=== PATIENT | female | born 1950 | race Caucasian/White ===

== ENCOUNTER 2018-11-06 09:19 | Day surgery (SDC) | payer MEDICARE, BC ==
[~2018-11-06 09:19] MED LIST: Acetaminophen 325 MG Tab PO SCH; EPINEPHrine 1 MG/ML SDV ONE; Lactated Ringers 1,000 ML IV SCH; Lidocaine 1%/Sod Bicarbonate in NS 8.4% 1 ML Syringe IDERM PRN; Pregabalin 25 MG Cap PO SCH; Ropivacaine 0.5% 5 MG/ML 30 ML SDV ONE; Sodium Chloride 0.9% 10 ML Syringe FLUSH PRN; oxyCODONE ER 10 MG TAB.ER PO SCH
[2018-11-06] MEDS ORDERED: Midazolam 1 MG/ML 2 ML SDV ONE (09:56)
[2018-11-06] MEDS ORDERED: fentaNYL 100 MCG/2 ML SDV ONE (09:56)
[2018-11-06] MEDS ORDERED: Propofol 200 MG/20 ML SDV ONE ×2 (09:56)
[2018-11-06] MEDS ORDERED: ceFAZolin 1 GM Vial ONE ×2 (10:07→12:03)
[2018-11-06] MEDS ORDERED: Bupivacaine 0.75% 30 ML SDV ONE (10:07)
[2018-11-06] MEDS ORDERED: Ondansetron 4 MG/2 ML SDV ONE (10:07)
[2018-11-06] MEDS ORDERED: Lidocaine 1% 6 ML ONE (10:07)
[2018-11-06] MEDS ORDERED: Vancomycin 1 GM SDV ONE (12:03)
[2018-11-06] MEDS ORDERED: Bupivacaine 0.25% 30 ML SDV ONE (12:03)
[2018-11-06] MEDS ORDERED: Iodine/Sodium Iodide 2% Tincture 30 ML Bottle ONE (12:03)
--- NOTE | 2018-11-06 12:41 | PCM.PREANE ---
Preanesthetic Assessment - Anesthesia/Transfusion/Family Hx Anesthesia History: Prior Anesthesia Without Reaction Family History of Anesthesia Reaction: No Transfusion History: No Prior Transfusion(s) Intubation History: Unknown - Review of Systems General: No Symptoms Pulmonary: No Symptoms Cardiovascular: No Symptoms Gastrointestinal: No Symptoms Neurological: Numbness (bilateral carpal tunnel) Other: Reports: Thyroid Problems (hypothyroid) - Physical Assessment NPO Status Date: 11/05/18 NPO Status Time: 20:30 Pulse: 66 O2 Sat by Pulse Oximetry: 97 Respiratory Rate: 16 Blood Pressure: 131/84 Temperature: 36.3 C Vital Signs: Last Vital Signs Temp 36.3 C 11/06/18 10:00 Pulse 66 11/06/18 10:00 Resp 16 11/06/18 10:00 BP 131/84 11/06/18 10:00 Pulse Ox 97 11/06/18 10:00 Height: 1.63 m Weight: 72.575 kg ASA Class: 2 Mental Status: Alert & Oriented x3 Airway Class: Mallampati = 1 Dentition: Reports: Normal Dentition Thyro-Mental Finger Breadths: 3 Mouth Opening Finger Breadths: 3 ROM/Head Extension: Full Lungs: Clear to Auscultation, Normal Respiratory Effort Cardiovascular: Regular Rate, Regular Rhythm - Lab Values: Laboratory Last Values MRSA (PCR) Negative 10/17/18 12:10 - Imaging/EKG Impressions: EKG SR rate 57 on chart - Allergies Allergies/Adverse Reactions: Allergies Allergy/AdvReac Type Severity Reaction Status Date / Time No Known Allergies Allergy Verified 11/05/18 19:03 - Blood Blood Available: No Product(s) Available: None - Anesthesia Plan Pre-Op Medication Ordered: None - Acknowledgements Anesthesia Type Planned: Spinal, Regional Block (adductor cannal block for post- op pain control) Pt an Appropriate Candidate for the Planned Anesthesia: Yes Alternatives and Risks of Anesthesia Discussed w Pt/Guardian: Yes Pt/Guardian Understands and Agrees with Anesthesia Plan: Yes PreAnesthesia Questionnaire HEENT History: Reports: Impaired Vision, Sinusitis, Other (See Below) Other HEENT History: Nasal Congestion; Patient wears eye glasses. Cardiovascular History: Reports: High Cholesterol, Other (See Below) Other Cardiovascular History: fluid retention Respiratory History: Reports: Other (See Below) Other Respiratory History: Patient reports having had coughs and ACUTE URI's. States she has not had an upper respiratory infection for "quite awhile". Gastrointestinal History: Reports: Chronic Constipation, GERD, Other (See Below) Other Gastrointestinal History: Abdominal Pain, Nausea Genitourinary History: Reports: Other (See Below) Other Genitourinary History: enlarged ovary Other OB/BYN History: Enlarged Right Ovary, Hysterectomy (1991) with Oophorectomy Musculoskeletal History: Reports: Arthritis, Other (See Below) Other Musculoskeletal History: Ganglion Cyst, Popliteal Cyst, Left Knee Arthritis, Foot Pain Neurological History: Reports: Headaches, Chronic Psychiatric History: Reports: Depression, Other (See Below) Other Psychiatric History: Fatigue Endocrine/Metabolic History: Reports: Hypothyroidism, Vitamin D Deficiency Other Endocrine/Metabolic History: Vitamin B12 Deficiency Hematologic History: Reports: B12 Deficiency Immunologic History: Reports: None Oncologic (Cancer) History: Reports: None Dermatologic History: Reports: Other (See Below) Other Dermatologic History: Skin Lesion, Skin Neoplasm, Rash, Solar Lentigo, Cheng to bilateral UE's (1988) - Past Surgical History HEENT Surgical History: Reports: Tonsillectomy Cardiovascular Surgical History: Reports: None Respiratory Surgical History: Reports: None GI Surgical History: Reports: Appendectomy, Cholecystectomy, Colon Female Surgical History: Reports: Hysterectomy, Oophorectomy Male Surgical History: Reports: None Endocrine Surgical History: Reports: None Neurological Surgical History: Reports: None Musculoskeletal Surgical History: Reports: Knee Replacement, Other (See Below) Other Musculoskeletal Surgeries/Procedures:: Bunion Correction to bilateral feet. States she has a pin in each big toe from this surgery, right total knee Oncologic Surgical History: Reports: None Dermatological Surgical History: Reports: Skin Graft, Other (See Below) - SUBSTANCE USE Smoking Status *Q: Never Smoker Tobacco Use Within Last Twelve Months: No Second Hand Smoke Exposure: No Days Per Week of Alcohol Use: 0 Number of Drinks Per Day: 0 Total Drinks Per Week: 0 Recreational Drug Use History: No - HOME MEDS Home Medications: Home Meds Cholecalciferol (Vitamin D3) [Vitamin D3] 5,000 unit PO DAILY 04/07/18 [History] Fluticasone Propionate [Flonase] 1 - 2 spray NASBOTH DAILY 04/07/18 [History] Levothyroxine [Synthroid] 50 mcg PO DAILY 04/07/18 [History] Magnesium 250 mg PO TID 04/07/18 [History] Multivitamin [One Daily] 1 tab PO DAILY 04/07/18 [History] atorvaSTATin [Lipitor] 20 mg PO BEDTIME 04/07/18 [History] Vitamin E 100 unit PO DAILY 11/05/18 [History] - CURRENT (IN HOUSE) MEDS Current Meds: Current Medications Acetaminophen (Tylenol) 975 mg PO ONETIME [facility] Stop: 11/06/18 18:00 Last Admin: 11/06/18 10:39 Dose: 975 mg Aspirin (Ecotrin) 325 mg PO BID [facility] Bisacodyl (Dulcolax) 5 mg PO DAILY PRN PRN Reason: Constipation Morphine Sulfate 8 mg/Epinephrine HCl 0.3 mg/Cefuroxime Sodium 750 mg/Ketorolac Tromethamine 30 mg/Sodium Chloride 27.9 ml 0 mg .XX ONETIME ONE Stop: 11/06/18 13:46 Cyclobenzaprine HCl (Flexeril) 10 mg PO TID PRN PRN Reason: Spasms Docusate Sodium (Colace) 100 mg PO BID [facility] Famotidine (Pepcid) 20 mg PO Q12H [facility] Lactated Ringer's (Ringers, Lactated) 1,000 mls @ 125 mls/hr IV ASDIRECTED [facility] Stop: 11/06/18 23:00 Last Admin: 11/06/18 10:43 Dose: 125 mls/hr Cefazolin Sodium/Dextrose 2 gm (/ Premix) 50 mls @ 100 mls/hr IV Q8H [facility] Stop: 11/07/18 12:29 Ketorolac Tromethamine (Toradol) 15 mg IVPUSH Q6H PRN PRN Reason: Pain Lidocaine/Sodium Bicarbonate (Buffered Lidocaine 1% In Ns 8.4%) 0.25 ml IDERM ONETIME PRN PRN Reason: Prior to IV Start Stop: 11/06/18 18:00 Last Admin: 11/06/18 10:43 Dose: 0.25 ml Magnesium Hydroxide (Milk Of Magnesia) 30 ml PO BID PRN PRN Reason: Constipation Morphine Sulfate (Morphine) 2 mg IVPUSH Q2H PRN PRN Reason: Breakthrough Pain Naloxone HCl (Narcan) 0.1 mg IVPUSH Q5M PRN PRN Reason: Oversedation Ondansetron HCl (Zofran) 4 mg IVPUSH Q6H PRN PRN Reason: Nausea/Vomiting Oxycodone HCl (Oxycontin) 10 mg PO ONETIME [facility] Stop: 11/06/18 18:00 Last Admin: 11/06/18 10:40 Dose: 10 mg Oxycodone/Acetaminophen (Percocet 325-5 Mg) 1 - 2 tab PO Q4H PRN PRN Reason: Pain Pregabalin (Lyrica) 50 mg PO ONETIME [facility] Stop: 11/06/18 18:00 Last Admin: 11/06/18 10:39 Dose: 50 mg Rivaroxaban (Xarelto) 10 mg PO DAILY [facility] Senna (Senna) 8.6 mg PO BID PRN PRN Reason: Constipation Sodium Chloride (Saline Flush) 10 ml FLUSH ASDIRECTED PRN PRN Reason: Keep Vein Open Stop: 11/06/18 18:00 Discontinued Medications Bupivacaine HCl (Sensorcaine-Mpf 0.75%) Confirm Administered Dose 30 ml .ROUTE .STK-MED ONE Stop: 11/06/18 10:08 Bupivacaine HCl (Marcaine 0.25%) Confirm Administered Dose 30 ml .ROUTE .STK- MED ONE Stop: 11/06/18 12:04 Cefazolin Sodium (Ancef) Confirm Administered Dose 2 gm .ROUTE .STK-MED ONE Stop: 11/06/18 10:08 Cefazolin Sodium (Ancef) Confirm Administered Dose 2 gm .ROUTE .STK-MED ONE Stop: 11/06/18 12:04 Epinephrine HCl (Adrenalin) Confirm Administered Dose 1 mg .ROUTE .STK-MED ONE Stop: 11/06/18 05:49 Fentanyl (Sublimaze) Confirm Administered Dose 100 mcg .ROUTE .STK-MED ONE Stop: 11/06/18 09:57 Lidocaine HCl (Xylocaine-Mpf 1%) Confirm Administered Dose 6 mls @ as directed .ROUTE .STK-MED ONE Stop: 11/06/18 10:08 Iodine (Iodine 2% Mild Tincture) Confirm Administered Dose 30 ml .ROUTE .STK- MED ONE Stop: 11/06/18 12:04 Midazolam HCl (Versed 1 Mg/Ml) Confirm Administered Dose 2 mg .ROUTE .STK-MED ONE Stop: 11/06/18 09:57 Ondansetron HCl (Zofran) Confirm Administered Dose 4 mg .ROUTE .STK-MED ONE Stop: 11/06/18 10:08 Propofol (Diprivan 20 Ml) Confirm Administered Dose 400 mg .ROUTE .STK-MED ONE Stop: 11/06/18 09:57 Propofol (Diprivan 20 Ml) Confirm Administered Dose 200 mg .ROUTE .STK-MED ONE Stop: 11/06/18 09:57 Ropivacaine (Naropin 0.5%) Confirm Administered Dose [address] .[facility]-MED ONE Stop: 11/06/18 05:49 Tranexamic Acid (Cyklokapron) Confirm Administered Dose 1,000 mg .ROUTE .STK- MED ONE Stop: 11/06/18 12:04 Vancomycin HCl (Vancomycin) Confirm Administered Dose 1 gm .ROUTE .ST-MED ONE Stop: 11/06/18 12:04
[2018-11-06] MEDS ORDERED: ePHEDrine/Normal Saline 25 MG/5 ML Syringe ONE (13:45)
[2018-11-06] MEDS: Morphine 8 MG, EPINEPHrine 0.3 MG, Cefuroxime 750 MG, Ketorolac 30 MG, Sodium Chloride ... ONE ×10 (14:13→16:29)
[2018-11-06] MEDS ORDERED: Ketorolac 15 MG/ML SDV IVPUSH PRN (15:00)
[2018-11-06] MEDS ORDERED: Bisacodyl 5 MG Tab PO PRN (15:00)
[2018-11-06] MEDS ORDERED: Magnesium Hydroxide 400 MG/5 ML Susp 30 ML Cup PO PRN (15:00)
[2018-11-06] MEDS ORDERED: Morphine 2 MG/ML Syringe IVPUSH PRN (15:00)
[2018-11-06] MEDS ORDERED: Naloxone 0.4 MG/ML SDV IVPUSH PRN (15:00)
[2018-11-06] MEDS ORDERED: Sennosides 8.6 MG Tab PO PRN (15:00)
[2018-11-06] MEDS ORDERED: fentaNYL 100 MCG/2 ML SDV IVPUSH PRN (15:01)
--- NOTE | 2018-11-06 15:02 | PCM.POSTAN ---
POST ANESTHESIA ASSESSMENT - MENTAL STATUS Mental Status: Alert, Oriented - VITAL SIGNS Pulse Rate: 81 SaO2: 96 Resp Rate: 8 Blood Pressure: 80/54 Temperature: 37.2 C - RESPIRATORY Respiratory Status: Respiratory Rate WNL, Airway Patent, O2 Saturation Stable, Supplemental Oxygen - CARDIOVASCULAR CV Status: Pulse Rate WNL, Blood Pressure Stable - GASTROINTESTINAL GI Status: No Symptoms - PAIN Pain Score: 0 - POST OP HYDRATION Hydration Status: Adequate & Stable - OBSERVATIONS Free Text/Narrative:: no anesthesia complications noted
--- NOTE | 2018-11-06 15:06 | PCM.SN ---
- Free Text/Narrative Note: Left selective femoral nerve block at the adductor canal for post-procedure pain control Time Out: 1446 Start: 1446 End: 1454 Chart reviewed. Consent signed. Questions answered. Appropriate monitors applied. Time out performed. Left mid-shaft femur evaluated with ultrasound. Scanning medially femur, I was able to identify the femoral artery in the adductor canal. The saphenous nerve was lateral to the artery. The skin was prepped lateral to the ultrasound probe with chlorahexadine. The 21ga 4 insulated block needle was inserted under direct ultrasound guidance into the adductor canal. 25 mL of 0.5% ropivacaine with 1:200,000 epinephrine was injected cirmcumferentially about the nerve with intermittent negative aspiration every 5mL. Patient tolerated the procedure well. See pictures on progress note and vital signs on nurses notes. Block completed postoperatively. Francisco Javier Glass CRNA
--- NOTE | 2018-11-06 15:52 | CR ---
Left knee: 2 views of the left knee were obtained. Comparison: No prior left knee exam. Knee prosthesis is seen. Components are aligned. Underlying bony structures are intact. Soft tissue air is noted from the surgical procedure. Calcification is noted off the medial epicondyle which is felt to be incidental. Impression: 1. Satisfactory radiographic appearance of recently placed left knee prosthesis. Diagnostic code #2
[2018-11-06] MEDS: Acetaminophen/oxyCODONE 325-5 MG Tab PO PRN (16:39)
[2018-11-06] MEDS: Cyclobenzaprine 10 MG Tab PO PRN (17:38)
[2018-11-06] MEDS: Ondansetron 4 MG/2 ML SDV IVPUSH PRN ×2 (18:15→22:35)
[2018-11-06] MEDS ORDERED: Sodium Chloride 0.9% 500 ML IV ONE (18:23)
[2018-11-06] MEDS ORDERED: Simvastatin 20 MG Tab PO SCH (21:00)
[2018-11-06] MEDS ORDERED: Scopolamine 1.5 MG Transdermal Patch TOP ONE (21:23)
[2018-11-06] MEDS: ceFAZolin 2 GM in Premix Bag 1 BAG IV SCH (21:29)
[2018-11-06] MEDS: Docusate Sodium 100 MG Cap PO SCH (22:03)
[2018-11-06] MEDS: Famotidine 20 MG Tab PO SCH (22:03)
[2018-11-07] MEDS: Acetaminophen/oxyCODONE 325-5 MG Tab PO PRN ×4 (00:07→13:09)
[2018-11-07] MEDS: ceFAZolin 2 GM in Premix Bag 1 BAG IV SCH ×2 (04:23→11:35)
[2018-11-07] MEDS: Cyclobenzaprine 10 MG Tab PO PRN (04:24)
[2018-11-07] MEDS ORDERED: Levothyroxine 50 MCG Tab PO SCH (06:00)
--- NOTE | 2018-11-07 08:14 | PCM.SURGPN ---
- General Info Date of Service: 11/07/18 POD#: 1 Functional Status: Reports: Pain Controlled, Tolerating Diet, Ambulating, Urinating, Incentive Spirometry, Other (The pt states she is doing well.) - Patient Data Vitals - Most Recent: Last Vital Signs Temp 98.6 F 11/07/18 04:36 Pulse 57 L 11/07/18 04:36 Resp 16 11/07/18 04:36 BP 102/59 L 11/07/18 04:36 Pulse Ox 96 11/07/18 04:36 Weight - Most Recent: 160 lb I&O - Last 24 Hours: Intake & Output 11/06/18 11/07/18 11/07/18 22:59 06:59 14:59 Intake Total 200 1300 Output Total 2200 Balance 200 -900 Lab Results Last 24 Hrs: Laboratory Results - last 24 hr 11/07/18 11/07/18 Range/Units 05:25 05:25 WBC 5.94 (3.98-10.04) K/mm3 RBC 3.54 L (3.98-5.22) M/mm3 Hgb 11.1 L (11.2-15.7) gm/L Hct 34.8 (34.1-44.9) % MCV 98.3 H (79.4-94.8) fl MCH 31.4 (25.6-32.2) pg MCHC 31.9 L (32.2-35.5) g/dl RDW Std Deviation 43.6 (36.4-46.3) fL Plt Count 246 (182-369) K/mm3 MPV 9.3 L (9.4-12.3) fl Sodium 140 (136-145) mEq/L Potassium 4.0 (3.5-5.1) mEq/L Chloride 106 (98-107) mEq/L Carbon Dioxide 27 (21-32) mEq/L Anion Gap 11.0 (5-15) BUN 13 (7-18) mg/dL Creatinine 1.0 (0.55-1.02) mg/dL Est Cr Clr Drug Dosing 47.14 mL/min Estimated GFR (MDRD) 55 (>60) mL/min BUN/Creatinine Ratio 13.0 L (14-18) Glucose 105 (80-115) mg/dL Calcium 8.3 L (8.5-10.1) mg/dL Total Bilirubin 0.3 (0.2-1.0) mg/dL AST 53 H (15-37) U/L ALT 51 (14-59) U/L Alkaline Phosphatase 66 (46-116) U/L Total Protein 5.7 L (6.4-8.2) g/dl Albumin 2.6 L (3.4-5.0) g/dl Globulin 3.1 gm/dL Albumin/Globulin Ratio 0.8 L (1-2) Med Orders - Current: Current Medications Bisacodyl (Dulcolax) 5 mg PO DAILY PRN PRN Reason: Constipation Cholecalciferol (Vitamin D3) 5,000 unit PO DAILY [facility] Cyclobenzaprine HCl (Flexeril) 10 mg PO TID PRN PRN Reason: Spasms Last Admin: 11/07/18 04:24 Dose: 10 mg Docusate Sodium (Colace) 100 mg PO BID [facility] Last Admin: 11/06/18 22:03 Dose: 100 mg Famotidine (Pepcid) 20 mg PO Q12H [facility] Last Admin: 11/06/18 22:03 Dose: 20 mg Cefazolin Sodium/Dextrose 2 gm (/ Premix) 50 mls @ 100 mls/hr IV Q8H [facility] Stop: 11/07/18 12:29 Last Admin: 11/07/18 04:23 Dose: 100 mls/hr Ketorolac Tromethamine (Toradol) 15 mg IVPUSH Q6H PRN PRN Reason: Pain Levothyroxine Sodium (Synthroid) 50 mcg PO DAILY@0600 [facility] Last Admin: 11/07/18 06:39 Dose: 50 mcg Magnesium Hydroxide (Milk Of Magnesia) 30 ml PO BID PRN PRN Reason: Constipation Magnesium Oxide (Magnesium Oxide) 400 mg PO DAILY [facility] Miscellaneous Information (Remove Patch) 1 ea TRDERM ONETIME ONE Stop: 11/09/18 21:31 Morphine Sulfate (Morphine) 2 mg IVPUSH Q2H PRN PRN Reason: Breakthrough Pain Multivitamins (Thera) 1 each PO DAILY [facility] Naloxone HCl (Narcan) 0.1 mg IVPUSH Q5M PRN PRN Reason: Oversedation Ondansetron HCl (Zofran) 4 mg IVPUSH Q6H PRN PRN Reason: Nausea/Vomiting Last Admin: 11/06/18 22:35 Dose: 4 mg Oxycodone/Acetaminophen (Percocet 325-5 Mg) 1 - 2 tab PO Q4H PRN PRN Reason: Pain Last Admin: 11/07/18 04:23 Dose: 2 tab Fluticasone (Propionate Ptom) 0 each NASBOTH DAILY [facility] Rivaroxaban (Xarelto) 10 mg PO DAILY [facility] Senna (Senna) 8.6 mg PO BID PRN PRN Reason: Constipation Simvastatin (Zocor) 20 mg PO BEDTIME [facility] Last Admin: 11/06/18 22:03 Dose: 20 mg Discontinued Medications Acetaminophen (Tylenol) 975 mg PO ONETIME [facility] Stop: 11/06/18 18:00 Last Admin: 11/06/18 10:39 Dose: 975 mg Aspirin (Ecotrin) 325 mg PO BID [facility] Bupivacaine HCl (Sensorcaine-Mpf 0.75%) Confirm Administered Dose 30 ml .ROUTE .STK-MED ONE Stop: 11/06/18 10:08 Bupivacaine HCl (Marcaine 0.25%) Confirm Administered Dose 30 ml .ROUTE .STK- MED ONE Stop: 11/06/18 12:04 Last Admin: 11/06/18 14:13 Dose: 30 ml Cefazolin Sodium (Ancef) Confirm Administered Dose 2 gm .ROUTE .STK-MED ONE Stop: 11/06/18 10:08 Last Admin: 11/06/18 14:08 Dose: 2 gm Cefazolin Sodium (Ancef) Confirm Administered Dose 2 gm .ROUTE .STK-MED ONE Stop: 11/06/18 12:04 Morphine Sulfate 8 mg/Epinephrine HCl 0.3 mg/Cefuroxime Sodium 750 mg/Ketorolac Tromethamine 30 mg/Sodium Chloride 27.9 ml 0 mg .XX ONETIME ONE Stop: 11/06/18 13:46 Last Admin: 11/06/18 16:29 Dose: Not Given Ephedrine Sulfate (Ephedrine In Ns) Confirm Administered Dose 25 mg .ROUTE .STK- MED ONE Stop: 11/06/18 13:46 Epinephrine HCl (Adrenalin) Confirm Administered Dose 1 mg .ROUTE .STK-MED ONE Stop: 11/06/18 05:49 Fentanyl (Sublimaze) Confirm Administered Dose 100 mcg .ROUTE .STK-MED ONE Stop: 11/06/18 09:57 Fentanyl (Sublimaze) 50 mcg IVPUSH Q5M PRN PRN Reason: Pain Stop: 11/06/18 19:00 Lactated Ringer's (Ringers, Lactated) 1,000 mls @ 125 mls/hr IV ASDIRECTED [facility] Stop: 11/06/18 23:00 Last Admin: 11/06/18 10:43 Dose: 125 mls/hr Lidocaine HCl (Xylocaine-Mpf 1%) Confirm Administered Dose 6 mls @ as directed .ROUTE .STK-MED ONE Stop: 11/06/18 10:08 Sodium Chloride (Normal Saline) 500 mls @ 999 mls/hr IV ONETIME ONE Stop: 11/06/18 18:53 Last Admin: 11/06/18 18:52 Dose: 999 mls/hr Iodine (Iodine 2% Mild Tincture) Confirm Administered Dose 30 ml .ROUTE .STK- MED ONE Stop: 11/06/18 12:04 Last Admin: 11/06/18 14:05 Dose: 18 ml Lidocaine/Sodium Bicarbonate (Buffered Lidocaine 1% In Ns 8.4%) 0.25 ml IDERM ONETIME PRN PRN Reason: Prior to IV Start Stop: 11/06/18 18:00 Last Admin: 11/06/18 10:43 Dose: 0.25 ml Midazolam HCl (Versed 1 Mg/Ml) Confirm Administered Dose 2 mg .ROUTE .STK-MED ONE Stop: 11/06/18 09:57 Ondansetron HCl (Zofran) Confirm Administered Dose 4 mg .ROUTE .STK-MED ONE Stop: 11/06/18 10:08 Oxycodone HCl (Oxycontin) 10 mg PO ONETIME [facility] Stop: 11/06/18 18:00 Last Admin: 11/06/18 10:40 Dose: 10 mg Pregabalin (Lyrica) 50 mg PO ONETIME [facility] Stop: 11/06/18 18:00 Last Admin: 11/06/18 10:39 Dose: 50 mg Propofol (Diprivan 20 Ml) Confirm Administered Dose 400 mg .ROUTE .STK-MED ONE Stop: 11/06/18 09:57 Propofol (Diprivan 20 Ml) Confirm Administered Dose 200 mg .ROUTE .STK-MED ONE Stop: 11/06/18 09:57 Ropivacaine (Naropin 0.5%) Confirm Administered Dose 30 ml .ROUTE .STK-MED ONE Stop: 11/06/18 05:49 Scopolamine (Transderm-Scop) 1.5 mg TOP ONETIME ONE Stop: 11/06/18 21:24 Last Admin: 11/06/18 21:29 Dose: 1.5 mg Sodium Chloride (Saline Flush) 10 ml FLUSH ASDIRECTED PRN PRN Reason: Keep Vein Open Stop: 11/06/18 18:00 Tranexamic Acid (Cyklokapron) Confirm Administered Dose 1,000 mg .ROUTE .STK- MED ONE Stop: 11/06/18 12:04 Last Admin: 11/06/18 14:19 Dose: 1,000 mg Vancomycin HCl (Vancomycin) Confirm Administered Dose 1 gm .ROUTE .STK-MED ONE Stop: 11/06/18 12:04 Last Admin: 11/06/18 14:15 Dose: 1 gm - Exam Wound/Incisions: Dressing Dry and Intact General: Alert, Cooperative, No Acute Distress Lungs: Normal Respiratory Effort Extremities: Other (NVS intact for BLE. Adrianna's negative.) - Problem List Review Problem List Initiated/Reviewed/Updated: Yes - My Orders Last 24 Hours: Active Orders 24 hr Category Date Time Status Patient Status [ADT] Routine ADT 11/06/18 08:03 Active Antiembolic Devices [RC] 09,21 Care 11/06/18 08:04 Active Notify Provider [RC] ASDIRECTED Care 11/06/18 15:01 Active Pulse Oximetry [RC] ASDIRECTED Care 11/06/18 15:01 Active RT Incentive Spirometry [RC] Q1HWA Care 11/06/18 08:01 Active Ready for Discharge [RC] PER UNIT ROUTINE Care 11/07/18 08:11 Ordered Vital Signs [RC] Q4HR Care 11/06/18 08:03 Active Consult to Physician [CONS] Routine Cons 11/06/18 08:03 Active OT Evaluation and Treatment [CONS] Routine Cons 11/06/18 08:01 Active PT Evaluation and Treatment [CONS] Routine Cons 11/06/18 08:01 Active Regular Diet [DIET] Diet 11/06/18 Lunch Active Acetaminophen/oxyCODONE [Percocet 325-5 MG] Med 11/06/18 15:00 Active 1 - 2 tab PO Q4H PRN Bisacodyl [Dulcolax] Med 11/06/18 15:00 Active 5 mg PO DAILY PRN Cholecalciferol (Vitamin D3) [Vitamin D3] Med 11/07/18 09:00 Active 5,000 unit PO DAILY Cyclobenzaprine [Flexeril] Med 11/06/18 15:00 Active 10 mg PO TID PRN Docusate Sodium [Colace] Med 11/06/18 21:00 Active 100 mg PO BID Famotidine [Pepcid] Med 11/06/18 21:00 Active 20 mg PO Q12H Ketorolac [Toradol] Med 11/06/18 15:00 Active 15 mg IVPUSH Q6H PRN Levothyroxine [Synthroid] Med 11/07/18 06:00 Active 50 mcg PO DAILY@0600 Magnesium Hydroxide [Milk of Magnesia] Med 11/06/18 15:00 Active 30 ml PO BID PRN Magnesium Oxide Med 11/07/18 09:00 Active 400 mg PO DAILY Morphine Med 11/06/18 15:00 Active 2 mg IVPUSH Q2H PRN Multivitamins,Therapeutic [Thera] Med 11/07/18 09:00 Active 1 each PO DAILY Naloxone [Narcan] Med 11/06/18 15:00 Active 0.1 mg IVPUSH Q5M PRN Ondansetron [Zofran] Med 11/06/18 15:00 Active 4 mg IVPUSH Q6H PRN Patient's Own Medication [Ptom] Med 11/07/18 09:00 Active 0 each NASBOTH DAILY Remove Patch Med 11/09/18 21:30 Once 1 ea TRDERM ONETIME ONE Rivaroxaban [Xarelto] Med 11/07/18 09:00 Active 10 mg PO DAILY Sennosides [Senna] Med 11/06/18 15:00 Active 8.6 mg PO BID PRN Simvastatin [Zocor] Med 11/06/18 21:00 Active 20 mg PO BEDTIME ceFAZolin [Ancef] 2 gm Med 11/06/18 20:00 Active Premix Bag 1 bag IV Q8H Antiembolic Hose [OM.PC] Per Unit Routine Oth 11/06/18 08:05 Ordered Ice Therapy [OM.PC] Per Unit Routine Oth 11/06/18 08:05 Ordered Sequential Compression Device [OM.PC] Per Unit Routine Oth 11/06/18 08:01 Ordered Resuscitation Status Routine Resus Stat 11/06/18 08:03 Ordered Medication Orders Bisacodyl (Dulcolax) 5 mg PO DAILY PRN PRN Reason: Constipation Cholecalciferol (Vitamin D3) 5,000 unit PO DAILY [facility] Cyclobenzaprine HCl (Flexeril) 10 mg PO TID PRN PRN Reason: Spasms Last Admin: 11/07/18 04:24 Dose: 10 mg Admin: 11/06/18 17:38 Dose: 10 mg Docusate Sodium (Colace) 100 mg PO BID [facility] Last Admin: 11/06/18 22:03 Dose: 100 mg Famotidine (Pepcid) 20 mg PO Q12H [facility] Last Admin: 11/06/18 22:03 Dose: 20 mg Cefazolin Sodium/Dextrose 2 gm (/ Premix) 50 mls @ 100 mls/hr IV Q8H [facility] Stop: 11/07/18 12:29 Last Admin: 11/07/18 04:23 Dose: 100 mls/hr Infusion: 11/06/18 21:59 Dose: 100 mls/hr Admin: 11/06/18 21:29 Dose: 100 mls/hr Ketorolac Tromethamine (Toradol) 15 mg IVPUSH Q6H PRN PRN Reason: Pain Levothyroxine Sodium (Synthroid) 50 mcg PO DAILY@0600 [facility] Last Admin: 11/07/18 06:39 Dose: 50 mcg Magnesium Hydroxide (Milk Of Magnesia) 30 ml PO BID PRN PRN Reason: Constipation Magnesium Oxide (Magnesium Oxide) 400 mg PO DAILY [facility] Miscellaneous Information (Remove Patch) 1 ea TRDERM ONETIME ONE Stop: 11/09/18 21:31 Morphine Sulfate (Morphine) 2 mg IVPUSH Q2H PRN PRN Reason: Breakthrough Pain Multivitamins (Thera) 1 each PO DAILY [facility] Naloxone HCl (Narcan) 0.1 mg IVPUSH Q5M PRN PRN Reason: Oversedation Ondansetron HCl (Zofran) 4 mg IVPUSH Q6H PRN PRN Reason: Nausea/Vomiting Last Admin: 11/06/18 22:35 Dose: 4 mg Admin: 11/06/18 18:15 Dose: 4 mg Oxycodone/Acetaminophen (Percocet 325-5 Mg) 1 - 2 tab PO Q4H PRN PRN Reason: Pain Last Admin: 11/07/18 04:23 Dose: 2 tab Admin: 11/07/18 00:07 Dose: 2 tab Admin: 11/06/18 16:39 Dose: 2 tab Fluticasone (Propionate Ptom) 0 each NASBOTH DAILY [facility] Rivaroxaban (Xarelto) 10 mg PO DAILY [facility] Senna (Senna) 8.6 mg PO BID PRN PRN Reason: Constipation Simvastatin (Zocor) 20 mg PO BEDTIME [facility] Last Admin: 11/06/18 22:03 Dose: 20 mg - Assessment Assessment (Free Text/Narrative):: POD#1 - left TKA - Plan Plan (Free Text/Narrative):: 1. Xarelto x 5 days and then switch to ASA PO BID. The pt is aware the preference is for Xarelto PO daily, however, pt states he is unable to afford Xarelto or Eliquis for a complete course. Decision made to initiate Xarelto and then transition to ASA. Pt is aware of signs and symptoms to closely monitor and when to seek prompt medical attention. 2. Discharge to home today. 3. Outpatient therapy. 4. Hgb 11.1. The pt's case was discussed with Dr. Sterling.
[2018-11-07] MEDS: Famotidine 20 MG Tab PO SCH (08:18)
[2018-11-07] MEDS: Docusate Sodium 100 MG Cap PO SCH (08:18)
[2018-11-07] MEDS: Ondansetron 4 MG/2 ML SDV IVPUSH PRN (08:23)
--- NOTE | 2018-11-07 08:48 | PCM48HPAN ---
Post Anesthesia Note - EVALUATION WITHIN 48HRS OF ANESTHETIC Vital Signs in Normal Range: Yes Patient Participated in Evaluation: Yes Respiratory Function Stable: Yes Airway Patent: Yes Cardiovascular Function Stable: Yes Hydration Status Stable: Yes Pain Control Satisfactory: Yes Nausea and Vomiting Control Satisfactory: Yes Mental Status Recovered: Yes Pulse Rate: 66 Resp Rate: 14 Temperature: 36.7 C Blood Pressure: 95/62 - COMMENTS/OBSERVATIONS Free Text/Narrative:: no anesthesia complications noted
[2018-11-07] MEDS ORDERED: Cholecalciferol (Vitamin D3) 5,000 UNIT Tab PO SCH (09:00)
[2018-11-07] MEDS ORDERED: Rivaroxaban 10 MG Tab PO SCH (09:00)
[2018-11-07] MEDS ORDERED: FLUTICASONE PROPIONATE NASBOTH SCH (09:00)
[2018-11-07] MEDS ORDERED: Multivitamins,Therapeutic Tab PO SCH (09:00)
[2018-11-07] MEDS ORDERED: Magnesium Oxide 400 MG Tab PO SCH (09:00)
[2018-11-07] MEDS ORDERED: Aspirin 325 MG Tab.EC PO SCH (09:00)
--- NOTE | 2018-11-07 14:28 | PCM.OPNOTE ---
- General Post-Op/Procedure Note Date of Surgery/Procedure: 11/06/18 Operative Procedure(s): left total knee arthroplasty Pre Op Diagnosis: left knee osteoarthrosis Post-Op Diagnosis: Same Anesthesia Technique: Local, MAC, Spinal Primary Surgeon: Eddie Sterling Anesthesia Provider: Francisco Javier Glass Refinery Operator Helper: Nilsa Ramirez Refinery Operator Helper: Sheron Cevallos EBL in mLs: 250 Complications: None Condition: Good Free Text/Narrative:: Intake & Output 11/06/18 11/07/18 11/07/18 22:59 06:59 14:59 Intake Total 200 1300 Output Total 2200 Balance 200 -900 size 4 femur size 3 tibia 11mm 29x9
--- NOTE | 2018-11-07 14:56 | OR ---
DATE OF OPERATION: 11/06/2018 SURGEON: Eddie Sterling MD OPERATION PERFORMED: Left total knee arthroplasty. PREOPERATIVE DIAGNOSIS: Left knee osteoarthrosis. POSTOPERATIVE DIAGNOSIS: Left knee osteoarthrosis. ANESTHESIA: Local MAC with spinal. ANESTHESIA PROVIDER: Francisco Javier Glass CRNA. CASE ASSISTANT: Nilsa Ramirez PA-C and Sheron Cevallos LPN. ESTIMATED BLOOD LOSS: 250 mL. COMPLICATIONS: None. CONDITION: Stable. IMPLANTS: 1. Ravenna size 4 press-fit CR femur. 2. Mariano size 3 press-fit tibial base plate. 3. Ravenna size 3, 11 mm CS polyethylene insert. 4. Ravenna size 29 x 9 mm press fit patella. DESCRIPTION OF PROCEDURE: The patient was identified in the preop holding area. Proper site was marked and identified by the surgeon. The patient was taken back to the operating theater. After adequate anesthesia, the patient's left lower extremity had a nonsterile tourniquet applied and it was sterilely prepped and draped in the usual sterile fashion. OR time-out was performed. The patient received 2 g IV Ancef. At this time, the left lower extremity was exsanguinated. Tourniquet was insufflated to 300 mmHg. Standard medial parapatellar incision was made. Medial parapatellar arthrotomy was created. Deep fibers of the MCL were raised and anterior fat pad was resected. At this time, attention was turned to the patella. Patella measured 18, it was resected to a 13 for 29 x 9 mm patella. Drill holes were then drilled and found to be in adequate position. The drill was then drilled in the distal femur and the intramedullary distal femoral cutting guide was then placed. An 8 mm was resected off the distal femur and was found to be an adequate resection. Sizing guide was placed. It was found to be a size 4 press-fit CR femur that was shown on the implant record at the beginning of this dictation. The drill holes were drilled for the epicondylar axis using Whitesides line and epicondyles as reference. At this time, the 4-in - 1 cutting block was placed. An anterior posterior and anterior and posterior chamfer cuts were then completed. Attention was turned to the tibia. The posterior medial lateral retractors were placed. The extramedullary tibial guide was placed. It was placed in the old footprint of the ACL. It was aligned with the center of the ankle and 0 degrees of slope, 9 mm was then resected off the unaffected side. There was found to be an acceptable reduction. At this time, posterior osteophytes were removed along with medial and lateral meniscus. A trial implant was placed with a correct sized tibia that was mentioned at the beginning of the dictation. A Ravenna size 3, 11 mm CS polyethylene insert was then placed. The patient's knee was brought through range of motion. The patella was tracking centrally and was stable to varus and valgus stress. Alignment was found to be roughly at 0 degrees. The tibia was stamped and drilled in proper rotation. The universal tibial base plate was impacted in place. Next, the Mariano size 4 press-fit CR femur impacted into place and the Ravenna size 3 mm CS polyethylene insert was placed. The patient's knee was brought into full extension. The patella was then press-fit in place at this time. Tourniquet was deflated. One liter dilute Betadine solution was irrigated through the knee along with 3 L of pulse lavage irrigation with Ancef. Periarticular injection was then completed. The patient's knee was brought through a range of motion. Knee was found to be stable to varus valgus stress, the patella was tracking centrally with full range of motion. At this time, a #2 barbed suture was used for closure of the medial parapatellar arthrotomy. Topical tranexamic acid was placed. 2-0 Vicryl was used subcutaneously, Prineo was used for the skin. The patient tolerated the procedure well and was sent to the PACU in stable condition. ANNEMARIE /[id number] MTDD
== END 2018-11-07 14:00 | disposition home or self-care (01) ==
LOC: JD.SDS 09:19 → JD.MS 09:28 → JD.SDS 11-07 14:00
PROVIDERS: ATTEND Orthopaedic Surgery
DX: M17.12 Unilateral primary osteoarthritis, left knee (principal); E03.9 Hypothyroidism, unspecified; E55.9 Vitamin D deficiency, unspecified; E53.8 Deficiency of other specified B group vitamins; E78.00 Pure hypercholesterolemia, unspecified; F32.9 Major depressive disorder, single episode, unspecified; G44.009 Cluster headache syndrome, unspecified, not intractable; Z96.651 Presence of right artificial knee joint; Z79.51 Long term (current) use of inhaled steroids; Z79.01 Long term (current) use of anticoagulants; Z79.899 Other long term (current) drug therapy
CPT/HCPCS: 27447; 36415; 73560; 80053; 85027; 87641; 97110; 97116; 97161; 97165; 97535; A9270; J0171; J0690; J0697; J1885; J2001; J2270; J2405; J2704; J2795; J3010; J3370; J3490; J7040; J7050; J7120; 01402; 64450; J2250

== ENCOUNTER 2019-06-14 08:06 | Day surgery (SDC) | payer MEDICARE, BC ==
[~2019-06-14 08:06] MED LIST changes: -Acetaminophen 325 MG Tab PO SCH; -EPINEPHrine 1 MG/ML SDV ONE; -Pregabalin 25 MG Cap PO SCH; -Ropivacaine 0.5% 5 MG/ML 30 ML SDV ONE; -oxyCODONE ER 10 MG TAB.ER PO SCH
[2019-06-14] MEDS ORDERED: Lidocaine 1% 30 ML SDV ONE (08:57)
--- NOTE | 2019-06-14 09:02 | PCM.PREANE ---
Preanesthetic Assessment - Anesthesia/Transfusion/Family Hx Anesthesia History: Prior Anesthesia Without Reaction Family History of Anesthesia Reaction: No Transfusion History: No Prior Transfusion(s) Intubation History: Unknown - Review of Systems General: No Symptoms Pulmonary: No Symptoms Cardiovascular: No Symptoms Gastrointestinal: Other (rare GERD, depending on food) Neurological: Numbness, Tingling (left hand) Other: Reports: Thyroid Problems, Depression - Physical Assessment NPO Status Date: 06/13/19 NPO Status Time: 22:00 Vital Signs: Last Vital Signs Temp 36.4 C 06/14/19 08:20 Pulse 68 06/14/19 08:20 Resp 16 06/14/19 08:20 BP 128/73 06/14/19 08:20 Pulse Ox 99 06/14/19 08:20 Height: 1.63 m Weight: 82.554 kg ASA Class: 2 Mental Status: Alert & Oriented x3 Airway Class: Mallampati = 2 Dentition: Reports: Normal Dentition Thyro-Mental Finger Breadths: 3 Mouth Opening Finger Breadths: 3 Lungs: Clear to Auscultation, Normal Respiratory Effort Cardiovascular: Regular Rate, Regular Rhythm - Lab Values: Laboratory Last Values MRSA (PCR) Negative 06/08/19 12:00 - Allergies Allergies/Adverse Reactions: Allergies Allergy/AdvReac Type Severity Reaction Status Date / Time No Known Allergies Allergy Verified 06/14/19 08:47 - Blood Blood Available: No Product(s) Available: None - Anesthesia Plan Pre-Op Medication Ordered: None - Acknowledgements Anesthesia Type Planned: MAC Pt an Appropriate Candidate for the Planned Anesthesia: Yes Alternatives and Risks of Anesthesia Discussed w Pt/Guardian: Yes Pt/Guardian Understands and Agrees with Anesthesia Plan: Yes PreAnesthesia Questionnaire HEENT History: Reports: Allergic Rhinitis, Impaired Vision, Sinusitis, Other ( See Below) Other HEENT History: Nasal Congestion; Patient wears eye glasses. Cardiovascular History: Reports: High Cholesterol Other Cardiovascular History: fluid retention Respiratory History: Reports: None, Other (See Below) Other Respiratory History: Patient reports having had coughs and ACUTE URI's. States she has not had an upper respiratory infection for "quite awhile". Gastrointestinal History: Reports: Chronic Constipation, GERD, Other (See Below) Other Gastrointestinal History: Abdominal Pain, Nausea Genitourinary History: Reports: Other (See Below) Other Genitourinary History: enlarged ovary GLOBAL HUMAN RESOURCES DIRECTOR History: Reports: Other (See Below) Other OB/BYN History: Enlarged Right Ovary, Hysterectomy (1991) with Oophorectomy Musculoskeletal History: Reports: Arthritis, Other (See Below) Other Musculoskeletal History: Ganglion Cyst, Popliteal Cyst, Left Knee Arthritis, Foot Pain Neurological History: Reports: Headaches, Chronic Psychiatric History: Reports: Depression, Other (See Below) Other Psychiatric History: Fatigue Endocrine/Metabolic History: Reports: Hypothyroidism Other Endocrine/Metabolic History: Vitamin B12 Deficiency Hematologic History: Reports: B12 Deficiency Immunologic History: Reports: None Oncologic (Cancer) History: Reports: None Dermatologic History: Reports: Other (See Below) Other Dermatologic History: Skin Lesion, Skin Neoplasm, Rash, Solar Lentigo, Cheng to bilateral UE's (1988) - Past Surgical History HEENT Surgical History: Reports: Tonsillectomy Cardiovascular Surgical History: Reports: None Respiratory Surgical History: Reports: None GI Surgical History: Reports: Appendectomy, Cholecystectomy, Colon Female Surgical History: Reports: Hysterectomy, Oophorectomy Male Surgical History: Reports: None Endocrine Surgical History: Reports: None Neurological Surgical History: Reports: None Musculoskeletal Surgical History: Reports: Carpal Tunnel, Knee Replacement, Other (See Below) Other Musculoskeletal Surgeries/Procedures:: Bunion Correction to bilateral feet. States she has a pin in each big toe from this surgery, bilateral total knee replacements Oncologic Surgical History: Reports: None Dermatological Surgical History: Reports: Skin Graft, Other (See Below) - SUBSTANCE USE Smoking Status *Q: Never Smoker Recreational Drug Use History: No - HOME MEDS Home Medications: Home Meds Cholecalciferol (Vitamin D3) [Vitamin D3] 5,000 unit PO DAILY 04/07/18 [History] Fluticasone Propionate [Flonase] 1 - 2 spray NASBOTH DAILY PRN 04/07/18 [History ] Levothyroxine [Synthroid] 50 mcg PO DAILY 04/07/18 [History] Magnesium 500 mg PO BID 04/07/18 [History] Multivitamin [One Daily] 1 tab PO DAILY 04/07/18 [History] atorvaSTATin [Lipitor] 20 mg PO BEDTIME 04/07/18 [History] Cyanocobalamin (Vitamin B-12) [Vitamin B-12] 1,000 mcg PO DAILY 06/13/19 [ History] Folic Acid 800 mcg PO DAILY 06/13/19 [History] Ubidecarenone [Coq-10] 100 mg PO BEDTIME 06/13/19 [History] Acetaminophen/HYDROcodone [Niota 325-5 MG] 1 - 2 tab PO Q6H PRN #15 tablet 06/14 [Rx] - CURRENT (IN HOUSE) MEDS Current Meds: Current Medications Lactated Ringer's (Ringers, Lactated) 1,000 mls @ 125 mls/hr IV ASDIRECTED TOM Stop: 06/14/19 23:00 Last Admin: 06/14/19 08:35 Dose: 125 mls/hr Lidocaine/Sodium Bicarbonate (Buffered Lidocaine 1% In Ns 8.4%) 0.25 ml IDERM ONETIME PRN PRN Reason: Prior to IV Start Stop: 06/14/19 18:00 Last Admin: 06/14/19 08:35 Dose: 0.25 ml Sodium Chloride (Saline Flush) 10 ml FLUSH ASDIRECTED PRN PRN Reason: Keep Vein Open Stop: 06/14/19 18:00 Discontinued Medications Influenza Virus Vaccine (Pharmacy To Dose - Influenza Vaccine) 1 each IM ONETIME [facility], [facility] Influenza Virus Vaccine (Fluzone High-Dose 2019-20 Syringe) 180 mcg IM .ONCE ONE Stop: 06/14/19 08:01
[2019-06-14] MEDS ORDERED: Propofol 200 MG/20 ML SDV ONE ×2 (09:07→09:31)
[2019-06-14] MEDS ORDERED: Midazolam 1 MG/ML 2 ML SDV ONE (09:07)
[2019-06-14] MEDS ORDERED: fentaNYL 100 MCG/2 ML SDV ONE (09:07)
[2019-06-14] MEDS ORDERED: ceFAZolin 1 GM Vial ONE (09:35)
[2019-06-14] MEDS: Bupivacaine 0.25% 10 ML SDV ONE ×3 (09:50→10:02)
[2019-06-14] MEDS: Triamcinolone Acetonide 40 MG/ML 1 ML MDV ONE ×2 (10:01→10:02)
--- NOTE | 2019-06-14 10:26 | PCM48HPAN ---
Post Anesthesia Note - EVALUATION WITHIN 48HRS OF ANESTHETIC Vital Signs in Normal Range: Yes Patient Participated in Evaluation: Yes Respiratory Function Stable: Yes Airway Patent: Yes Cardiovascular Function Stable: Yes Hydration Status Stable: Yes Pain Control Satisfactory: Yes Nausea and Vomiting Control Satisfactory: Yes Mental Status Recovered: Yes Vital Signs: Last Vital Signs Temp 36.4 C 06/14/19 08:20 Pulse 68 06/14/19 08:20 Resp 16 06/14/19 08:20 BP 128/73 06/14/19 08:20 Pulse Ox 99 06/14/19 08:20
--- NOTE | 2019-06-18 10:01 | PCM.OPNOTE ---
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
--- NOTE | 2019-06-18 10:31 | OR ---
DATE OF OPERATION: 06/14/2019 SURGEON: Eddie Sterling MD OPERATION PERFORMED: Left carpal tunnel release with left wrist steroid injection and left wrist 1st CMC joint injection. PREOPERATIVE DIAGNOSIS: Left median nerve compression neuropathy with wrist and basilar thumb joint arthritis. POSTOPERATIVE DIAGNOSIS: Left median nerve compression neuropathy with wrist and basilar thumb joint arthritis. ANESTHESIA: Local/MAC. ANESTHESIA PROVIDER: Torie Jesus. SECURITY POLICE OFFICER: Nilsa Ramirez PA-C. ESTIMATED BLOOD LOSS: Less than 5 mL. COMPLICATIONS: None. CONDITION: Stable. DESCRIPTION OF PROCEDURE: The patient was identified in the preop holding area. Proper site was marked and identified by the surgeon. The patient was taken back to the operating theater where after adequate anesthesia, the patient's left upper extremity was sterilely prepped and draped in the usual sterile fashion. OR time-out was performed. The patient did not receive antibiotics and it is not indicated for soft tissue hand procedure. At this time, the left upper extremity was exsanguinated and an Esmarch was used as a tourniquet on the forearm. At this time, using 1% lidocaine without epinephrine and 0.25% Marcaine without epinephrine, the palmar cutaneous branch of the median nerve was anesthetized and then the incisional site was anesthetized using Mack cardinal line and ulnar border of the fourth digit as reference. Once this had set up, an incision was made. Blunt dissection was taken down to the palmar cutaneous fascia. Palmar cutaneous fascia was incised with a Cherokee blade. At this time, the transverse carpal ligament was identified. A small rent was made in the transverse carpal ligament with a Cherokee blade under direct visualization. Resection of the transverse carpal ligament was done distally using tenotomy scissors making sure to stop short of the palmar arch. At this time, attention was turned proximally after it was found to be adequately released. Using the tenotomy scissors keeping the tips ulnar to protect the palmar cutaneous branch of the median nerve, the superficial forearm fascia as well as the transverse carpal ligament were resected proximally. It was found to be adequate release both proximally and distally. At this time, adequate saline was irrigated through the wound. 4-0 nylon sutures were used closure of the skin. The patient was placed in a sterile soft dressing and sent to PACU in stable condition. After this was completed, under sterile technique, 1 mL of 40 mg Kenalog and 1 mL of 0.25% Marcaine were injected into the left wrist, into the left basilar thumb joint. The patient tolerated all procedures well. ANNEMARIE /[id number]
== END 2019-06-14 11:15 | disposition home or self-care (01) ==
LOC: JD.SDS 08:06
PROVIDERS: ATTEND Orthopaedic Surgery
DX: G56.02 Carpal tunnel syndrome, left upper limb (principal); M18.12 Unilateral primary osteoarthritis of first carpometacarpal joint, left hand; M19.032 Primary osteoarthritis, left wrist; E78.00 Pure hypercholesterolemia, unspecified; E03.9 Hypothyroidism, unspecified; E53.8 Deficiency of other specified B group vitamins; E55.9 Vitamin D deficiency, unspecified; F32.9 Major depressive disorder, single episode, unspecified; K59.00 Constipation, unspecified; Z23 Encounter for immunization; Z79.51 Long term (current) use of inhaled steroids; Z79.899 Other long term (current) drug therapy
CPT/HCPCS: 20600; 20605; 64721; 87641; 90662; J0690; J2001; J2250; J2704; J3010; J3301; J3490; J7120; 01810

== ENCOUNTER 2023-11-03 09:24 | Day surgery (SDC) | payer MEDICARE, BC ==
[~2023-11-03 09:24] MED LIST changes: +Brimonidine 0.2% Ophth Soln 5 ML Bottle EYERT SCH; +Cefuroxime 10 MG/ML SYRINGE EYERT SCH; -Lactated Ringers 1,000 ML IV SCH; +Lidocaine 1% PF 2 ML SDV INJECT SCH; -Lidocaine 1%/Sod Bicarbonate in NS 8.4% 1 ML Syringe IDERM PRN; +Phenylephrine 2.5% Ophth Soln 2 ML Bot EYERT SCH; +Pilocarpine 4% Ophth Soln 15 ML Bot EYERT SCH; +Polymyxin B/Trimethoprim 10 ML Bottle EYERT SCH; -Sodium Chloride 0.9% 10 ML Syringe FLUSH PRN; +Tetracaine HCl/PF 0.5% 4 ML Bottle EYEBOTH SCH; +Tropicamide 1% Ophth Soln 15 ML Bottle EYERT SCH
[2023-11-03] MEDS: Polymyxin B/Trimethoprim 10 ML Bottle EYERT SCH (10:00)
[2023-11-03] MEDS: Brimonidine 0.2% Ophth Soln 5 ML Bottle EYERT SCH (10:05)
[2023-11-03] MEDS: Phenylephrine 2.5% Ophth Soln 2 ML Bot EYERT SCH (10:10)
[2023-11-03] MEDS: Tropicamide 1% Ophth Soln 3 ML Bottle EYERT SCH (10:15)
[2023-11-03] MEDS: Proparacaine 0.5% Ophth Soln 15 ML Bottle EYEBOTH SCH (11:17)
[2023-11-03] MEDS: Lidocaine 1% PF 2 ML SDV INJECT SCH (11:34)
[2023-11-03] MEDS: Pilocarpine 4% Ophth Soln 15 ML Bot EYERT SCH (11:47)
[2023-11-03] MEDS: Cefuroxime 10 MG/ML SYRINGE EYERT SCH (11:47)
== END 2023-11-03 11:57 | disposition home or self-care (01) ==
LOC: JD.SDS 09:24
PROVIDERS: ATTEND Ophthalmology
DX: H25.813 Combined forms of age-related cataract, bilateral (principal); H16.103 Unspecified superficial keratitis, bilateral; H16.223 Keratoconjunctivitis sicca, not specified as Sjogren's, bilateral; H02.831 Dermatochalasis of right upper eyelid; H02.834 Dermatochalasis of left upper eyelid; H43.393 Other vitreous opacities, bilateral; E78.00 Pure hypercholesterolemia, unspecified; E03.9 Hypothyroidism, unspecified; K21.9 Gastro-esophageal reflux disease without esophagitis; Z87.891 Personal history of nicotine dependence; Z79.890 Hormone replacement therapy; Z79.899 Other long term (current) drug therapy
CPT/HCPCS: A9270-GY; J3490; V2632

== ENCOUNTER 2023-12-01 13:16 | Day surgery (SDC) | payer MEDICARE, BC ==
[2023-12-01] MEDS: Brimonidine 0.2% Ophth Soln 5 ML Bottle EYELF SCH (14:11)
[2023-12-01] MEDS: Phenylephrine 2.5% Ophth Soln 2 ML Bot EYELF SCH (14:16)
[2023-12-01] MEDS: Tropicamide 1% Ophth Soln 3 ML Bottle EYELF SCH (14:21)
[2023-12-01] MEDS: Tetracaine HCl/PF 0.5% 4 ML Bottle EYEBOTH SCH (14:48)
[2023-12-01] MEDS: Lidocaine 1% PF 2 ML SDV INJECT SCH (15:04)
[2023-12-01] MEDS: Polymyxin B/Trimethoprim 10 ML Bottle EYELF SCH (15:14)
[2023-12-01] MEDS: Cefuroxime 10 MG/ML SYRINGE EYELF SCH (15:14)
[2023-12-01] MEDS: Pilocarpine 4% Ophth Soln 15 ML Bot EYELF SCH (15:14)
== END 2023-12-01 15:22 | disposition home or self-care (01) ==
LOC: JD.SDS 13:16
PROVIDERS: ATTEND Ophthalmology
DX: H25.812 Combined forms of age-related cataract, left eye (principal); Z96.1 Presence of intraocular lens; E78.00 Pure hypercholesterolemia, unspecified; E03.9 Hypothyroidism, unspecified; Z79.890 Hormone replacement therapy; Z79.899 Other long term (current) drug therapy
CPT/HCPCS: A9270-GY; J3490